=== PATIENT | female | born 1995 | race Caucasian/White ===

== ENCOUNTER 2017-04-03 11:43 | Emergency (ER) | payer OTHER ==
[2017-04-03 12:09] VITALS: BP 115/52
--- NOTE | 2017-04-03 12:56 | UC ---
Lower Extremity/Ankle HPI - History of Current Complaint Chief Complaint: UCLowerExtremity Stated Complaint: TOE INJURY Time Seen by Provider: 04/03/17 12:37 Hx Obtained From: Patient Hx Last Menstrual Period: 03/03/17 ?: No Onset/Duration: Sudden Onset - banged toe on couch and felt sharp pain in toe 2 days ago. still painful and very black and blue Severity Initially: Severe Severity Currently: Moderate Aggravating Factor(s): Standing, Ambulation Alleviating Factor(s): Rest, Elevation, Ice Able to Bear Weight: Yes - with pain - Allergies/Home Medications Allergies/Adverse Reactions: Allergies Allergy/AdvReac Type Severity Reaction Status Date / Time Penicillins Allergy Intermediate Rash Verified 04/03/17 12:05 Sulfa Antibiotics Allergy Intermediate Hives Verified 04/03/17 12:05 Loratadine [From Claritin] Allergy Mild Rash Verified 04/03/17 12:05 Iodine Allergy Erythema Verified 04/03/17 12:05 Home Medications: Home Medications NK [No Home Medications Reported] 04/03/17 [History Confirmed 04/03/17] PMH/Surg Hx/FS Hx/Imm Hx Previously Healthy: Yes - Surgical History Surgical History: Yes Surgery Procedure, Year, and Place: tonsillectomy at 9 years old. adnoids at 9 years old. wisdom teeth removed 2010. appy 2013 - Family History Known Family History: Positive: None - Social History Occupation: Employed Full-time Lives: With Family Alcohol Use: Occasionally Alcohol Amount: once a month Substance Use Type: None Smoking Status (MU): Current Some Day Smoker Type: Cigarettes When Did the Patient Quit Smoking/Using Tobacco: 12/27/14 - Immunization History Most Recent Influenza Vaccination: none Most Recent Tetanus Shot: up to date Most Recent Pneumonia Vaccination: none Vaccination Up to Date: Yes Review of Systems Constitutional: Negative Skin: Bruising - R 5th toe Respiratory: Negative Cardiovascular: Negative Musculoskeletal: Other: - pain R 5th toe All Other Systems Reviewed And Are Negative: Yes Physical Exam Triage Information Reviewed: Yes Appearance: Well-Appearing, No Pain Distress, Well-Nourished Vital Signs: Initial Vital Signs Temp 98 F 04/03/17 12:06 Pulse 80 04/03/17 12:06 Resp 16 04/03/17 12:06 BP 115/52 04/03/17 12:06 Pulse Ox 100 04/03/17 12:06 Vital Signs Reviewed: Yes Respiratory Exam: Normal Cardiovascular Exam: Normal Musculoskeletal: Positive: Other: - pain, swelling and ecchymosis R 5th toe, ecchymosis extends to dorsal foot Psychological Exam: Normal Diagnostics - Radiology No standard instances Xray Interpretation: Positive (See Comments) - fracture right 5th toe, proximal phalange Lower Extremity Course/Dx - Differential Dx/Diagnosis Differential Diagnosis/HQI/PQRI: Contusion, Fracture (Closed), Sprain Provider Diagnoses: Fractured 5th toe Discharge - Discharge Plan Condition: Stable Disposition: HOME Patient Education Materials: Toe Fracture (ED) Forms: *Work Release Referrals: No Primary Care Phys,NOPCP [Primary Care Provider] - Ilia Solis MD [Medical Doctor] - 3 Days (for follow-up) Additional Instructions: Ice and elevate foot. use over the counter ibuprofen for pain as directed
--- NOTE | 2017-04-03 13:06 | RAD ---
INDICATION: Right fifth toe. TECHNIQUE: 3 views of the right fifth toe were obtained. FINDINGS: There is a comminuted nondisplaced fracture of the proximal aspect of the proximal phalanx. The fracture extends to the proximal articular margin. There is surrounding soft tissue swelling. IMPRESSION: COMMINUTED NONDISPLACED INTRA-ARTICULAR FRACTURE OF THE PROXIMAL PHALANX.
== END 2017-04-03 13:30 | disposition home or self-care (01) ==
LOC: UCEAST 11:43
DX: S92.591A Other fracture of right lesser toe(s), initial encounter for closed fracture (principal); Z88.2 Allergy status to sulfonamides; Z88.0 Allergy status to penicillin; Z88.8 Allergy status to other drugs, medicaments and biological substances; F17.210 Nicotine dependence, cigarettes, uncomplicated; W22.8XXA Striking against or struck by other objects, initial encounter; Y92.9 Unspecified place or not applicable
CPT/HCPCS: 81025; 99212; G0463

== ENCOUNTER 2018-01-01 14:18 | Emergency (ER) | payer OTHER ==
[2018-01-01 14:41] VITALS: BP 127/77
--- NOTE | 2018-01-01 14:49 | UC ---
FLU HPI - HPI Summary HPI Summary: 22 y/o female presents to the urgent care c/o body aches, subjective fever at home, mild GARRIDO since yesterday. Pain is 7/10 also associated w/ mild nasal discharge and mild cough. Pt took Tylenol 500mg PO last night to alleviate. Her mid chest hurts when she moves or coughs. She usually work out every day, but this morning she couldn't due to fatigue. Pt denies SOB, chest pain, abdominal pain, N/V/D. rash, neck pain, or Hx of tick bites - History of Current Complaint Chief Complaint: UCGeneralIllness Stated Complaint: BODY ACHES, SKIN SENSITIVE TO TOUCH Time Seen by Provider: 01/01/18 14:48 Hx Obtained From: Patient Hx Last Menstrual Period: [id number] ?: No Onset/Duration: Gradual Onset, Lasting Days - 1 days, Still Present, Worse Since - today Severity Currently: Mild Severity Initially: Moderate Pain Intensity: 7 Pain Scale Used: 0-10 Numeric Associated Signs & Symptoms: Positive: Fever - subjective fever at home, Myalgia , Nasal Congestion - clear - Risk Factors Influenza Risk Factors: Negative - Allergy/Home Medications Allergies/Adverse Reactions: Allergies Allergy/AdvReac Type Severity Reaction Status Date / Time iodine Allergy See Comment Verified 01/01/18 14:42 loratadine [From Claritin] Allergy Rash Verified 01/01/18 14:42 Penicillins Allergy Rash Verified 01/01/18 14:42 Sulfa (Sulfonamide Allergy Hives Verified 01/01/18 14:42 Antibiotics) Home Medications: Home Medications Aspirin/Caffeine [Jessica Back & Body Pain Ex] 1 tab PO Q8H 01/01/18 [History Confirmed 01/01/18] Norgestimate-Ethinyl Estradiol [[place] 28 Tablet] 1 each PO DAILY 01/01/18 [History Confirmed 01/01/18] PMH/Surg Hx/FS Hx/Imm Hx Previously Healthy: Yes - Pt denies PMHX - Surgical History Surgical History: Yes Surgery Procedure, Year, and Place: tonsillectomy at 9 years old. adnoids at 9 years old. wisdom teeth removed 2010. appy 2013. laproscopy 2014 - Family History Known Family History: Positive: Hypertension, Diabetes - Social History Occupation: Employed Full-time Lives: With Family Alcohol Use: Weekly Alcohol Amount: once a month Substance Use Type: None Smoking Status (MU): Light Every Day Tobacco Smoker Type: Cigarettes When Did the Patient Quit Smoking/Using Tobacco: 12/27/14 - Immunization History Most Recent Influenza Vaccination: none Most Recent Tetanus Shot: up to date Most Recent Pneumonia Vaccination: none Vaccination Up to Date: Yes Review of Systems Constitutional: Fever - subjective fever at home, Chills, Fatigue Skin: Negative Eyes: Negative ENT: Nasal Discharge - clear Respiratory: Cough - mild dry cough Cardiovascular: Negative Gastrointestinal: Negative Genitourinary: Negative Motor: Negative Neurovascular: Negative Musculoskeletal: Myalgia Neurological: Negative Psychological: Negative Is Patient Immunocompromised?: No All Other Systems Reviewed And Are Negative: Yes Physical Exam - Summary Physical Exam Summary: VITAL SIGNS: Reviewed. GENERAL: Patient is a well developed and nourished female who is sitting comfortable in the examining table. Patient is not in any acute respiratory distress. HEAD AND FACE: No signs of trauma. No ecchymosis, hematomas or skull depressions. No sinus tenderness. EYES: PERRLA, EOMI x 2, No injected conjunctiva, no nystagmus. No photophobia. EARS: Hearing grossly intact. Ear canals and tympanic membranes are within normal limits. Nose: edematous and erythematous nasal mucosa w/ clear nasal discharge. MOUTH: Positive no erythema, no tonsillar enlargement. Uvula in midline. NECK: Supple, trachea is midline, Positive anterior cervical lymphadenopathy, no JVD, no carotid bruit, no c-spine tenderness, neck with full ROM. No meningeal signs, no Kernig's or brudzinskis signs. CHEST: Symmetric, no tenderness at palpation LUNGS: Clear to auscultation bilaterally. No wheezing or crackles. CVS: Regular rate and rhythm, S1 and S2 present, no murmurs or gallops appreciated. ABDOMEN: Soft, non-tender. No signs of distention. No rebound no guarding, and no masses palpated. Bowel sounds are normal. EXTREMITIES: FROM in all major joints, no edema, no cyanosis or clubbing. NEURO: Alert and oriented x 3. No acute neurological deficits. Speech is normal and follows commands. SKIN: Dry and warm Triage Information Reviewed: Yes Vital Signs: Initial Vital Signs Temp 99.9 F 01/01/18 14:34 Pulse 101 10/06/18 14:34 Resp 16 01/01/18 14:34 BP 127/77 01/01/18 14:34 Pulse Ox 98 01/01/18 14:34 Flu Course/Dx - Course Course Of Treatment: 22 y/o female presents to the urgent care c/o body aches, subjective fever at home, mild GARRIDO since yesterday. Pain is 7/10 also associated w/ mild nasal discharge and mild cough. Pt took Tylenol 500mg PO last night to alleviate. Her mid chest hurts when she moves or coughs. She usually work out every day, but this morning she couldn't due to fatigue. Pt denies SOB, chest pain, abdominal pain, N/V/D. rash, neck pain, or Hx of tick bites. Hx obtained. Pt w/ mild URI on examination.Influenza A&B ordered: result : negative. Pt Rx ibuprofen PO to alleviates symptoms. Pt givne first dose at the clinic by nurse. Pt tolerated well medication and felt better. Pt Advised on hand washing and rest, increase fluid intake, eat well and avoid strenuous exercise. If symptoms do not improve or worsen advised to return to the urgent care or f/u with her PCP for further evaluation and treatment.D/C instructions explained. Pt understood and agreed with plan of care. - Differential Dx/Diagnosis Differential Diagnosis/HQI/PQRI: Bronchitis, Influenza, Upper Respiratory Infection, Other - viral syndrome Provider Diagnoses: 1- Viral syndrome Discharge - Sign-Out/Discharge Documenting (check all that apply): Patient Departure - D/c home All imaging exams completed and their final reports reviewed: No Studies - Discharge Plan Condition: Stable Disposition: HOME Prescriptions: Ibuprofen TAB* [Motrin TAB* 800 MG] 800 mg PO Q6H PRN #30 tab PRN Reason: Pain Patient Education Materials: Viral Syndrome (ED) Referrals: [facility] REFERR[facility] [Outside] Additional Instructions: 1-Please take ibuprofen PO q6-8hrs prn as instructed after meals to alleviate pain and swelling. Increase fluid intake, eat well, rest and avoid strenuous exercise 2-If symptoms do not improve or worsen please return to the urgent care or f/u with your PCP in 2-3 days for further evaluation and treatment. 3-If you develop fever and severe body aches despite taking Ibuprofen and good hydration please go immediately to the ER for further management - Billing Disposition and Condition Condition: STABLE Disposition: Home - Attestation Statements Provider Attestation: I was available for consult. This patient was seen by the CARIN. The patient was not presented to, seen by, or examined by me. -Kelli
[2018-01-01] MEDS ORDERED: Ibuprofen TAB* 400 MG PO ONE (14:59)
== END 2018-01-01 15:45 | disposition home or self-care (01) ==
LOC: UCEAST 14:18
DX: B34.9 Viral infection, unspecified (principal); F17.210 Nicotine dependence, cigarettes, uncomplicated; Z88.0 Allergy status to penicillin; Z88.8 Allergy status to other drugs, medicaments and biological substances; R50.9 Fever, unspecified
CPT/HCPCS: 81003; 84702; 99212; A9270-GY; G0463

== ENCOUNTER 2018-01-02 16:04 | Emergency (ER) | payer OTHER ==
[2018-01-02] MEDS ORDERED: NS 0.9% 1000 ML* 1,000 ML IV ONE ×3 (16:33→21:49)
[2018-01-02] MEDS ORDERED: Ketorolac INJ* 30 MG/ML 1 ML VIAL IV PUSH ONE (16:33)
[2018-01-02 16:52] LABS: ABS Basophils 0 10^3/ul (0-0.2); ABS Eosinophils 0 10^3/ul (0-0.6); ABS Lymphocytes 0.8 10^3/ul (1.0-4.8); ABS Monocytes 0.3 10^3/ul (0-0.8); ABS Neutrophils 5.6 10^3/ul (1.5-7.7); ABS Nucleated RBC 0 10^3/ul; Eosinophil % 0.1 % (0-6); Hematocrit 44 % (35-47); Lymphocyte % 11.8 % (25-47); Mean Corpuscular HGB Conc 34 g/dl (31-36); Mean Corpuscular Hemoglobin 30 pg (27-31); Mean Corpuscular Volume 88 fL (80-97); Mean Platelet Volume 9.9 um3 (7.4-10.4); Nucleated Red Blood Cells % 0; Platelet Count 107 10^3/ul (150-450); Red Blood Count 4.96 10^6/ul (4.00-5.40); Red Cell Distribution Width 13 % (10.5-15); White Blood Count 6.8 10^3/ul (3.5-10.8)
--- NOTE | 2018-01-02 16:52 | ED ---
GI/ HPI - HPI Summary HPI Summary: The pt is a 22 y.o female with a chief complaint of vaginal bleeding. The pt is presenting to the [facility] accompanied by no one. She states that she went to [facility] yesterday (01/01/18) in order to see whether she had the flu. She was not diagnosed with the flu at the [facility]. Pt is on control and states the bleeding was unnatural and not associated with the menstrual cycle. The bleeding is reported to be "heavy." Pt reports of myalgia. She states that she had had similar symptoms last year with a significant STD, however she also states that she gets regularly checked since last year for the STD. Ibuprofen was taken at 1100. The patient rates the pain 8/10 in severity. Symptoms aggravated by nothing. Symptoms alleviated by nothing. - History of Current Complaint Chief Complaint: EDVaginalBleeding Time Seen by Provider: 01/02/18 16:16 Stated Complaint: ABNORMAL BLEEDING/COUGH Hx Obtained From: Patient Hx Last Menstrual Period: [id number] Onset/Duration: Started Days Ago - Yesterday Severity: Severe Current Severity: Severe Pain Intensity: 8 Additional Signs & Symptoms: Positive: Vaginal Bleeding, Other: - Myalgia Aggravating Factor(s): Nothing Alleviating Factor(s): Nothing - Additional Pertinent History Primary Care Physician: [id number] - Allergy/Home Medications Allergies/Adverse Reactions: Allergies Allergy/AdvReac Type Severity Reaction Status Date / Time iodine Allergy See Comment Verified 01/01/18 14:42 loratadine [From Claritin] Allergy Rash Verified 01/01/18 14:42 Penicillins Allergy Rash Verified 01/01/18 14:42 Sulfa (Sulfonamide Allergy Hives Verified 01/01/18 14:42 Antibiotics) PMH/Surg Hx/FS Hx/Imm Hx Endocrine/Hematology History: Reports: Hx Anemia Denies: Hx Diabetes Cardiovascular History: Denies: Hx Congestive Heart Failure, Hx Hypertension GI History: Reports: Other GI Disorders - indigestion History: Reports: Hx Kidney Infection, Other Problems/Disorders - bladder infections Denies: Hx Dialysis, Hx Renal Disease Psychiatric History: Reports: Hx Anxiety - eccessive anxiety/depression, Hx Panic Disorder Denies: Hx Eating Disorder, Hx of Violent Episodes Against Others - Surgical History Surgery Procedure, Year, and Place: tonsillectomy at 9 years old. adnoids at 9 years old. wisdom teeth removed 2010. appy 2014. laproscopy 2015 Hx Anesthesia Reactions: No Infectious Disease History: No Infectious Disease History: Denies: Hx Clostridium Difficile, Hx Hepatitis, Hx Human Immunodeficiency Virus (HIV), Hx of Known/Suspected MRSA, Hx Shingles, Hx Tuberculosis, Hx Known/ Suspected VRE, Hx Known/Suspected VRSA, History Other Infectious Disease, Traveled Outside the [place] in Last 30 Days - Family History Known Family History: Positive: None, Hypertension, Diabetes - Social History Alcohol Use: Weekly Alcohol Amount: once a month Substance Use Type: Reports: None Smoking Status (MU): Light Every Day Tobacco Smoker Type: Cigarettes Review of Systems Constitutional: Negative Eyes: Negative ENT: Negative Cardiovascular: Negative Respiratory: Negative Gastrointestinal: Negative Genitourinary: Other - Vaginal bleeding Positive: Myalgia Skin: Negative Neurological: Negative Psychological: Normal All Other Systems Reviewed And Are Negative: Yes Physical Exam - Summary Physical Exam Summary: Appearance: The patient is well-nourished in no acute distress and in no acute pain. Skin: The skin is warm and dry and skin color reflects adequate perfusion. HEENT: The head is normocephalic and atraumatic. The pupils are equal and reactive. The conjunctivae are clear and without drainage. Nares are patent and without drainage. Mouth reveals moist mucous membranes and the throat is without erythema and exudate. The external ears are intact. The ear canals are patent and without drainage. The tympanic membranes are intact. Neck: The neck is supple with full range of motion and non-tender. There are no carotid bruits. There is no neck vein distension. Respiratory: Chest is non-tender. Lungs are clear to auscultation and breath sounds are symmetrical and equal. Cardiovascular: Heart is regular rate and rhythm. There is no murmur or rub auscultated. There is no peripheral edema and pulses are symmetrical and equal. Abdomen: The abdomen is soft and non-tender. There are normal bowel sounds heard in all four quadrants and there is no organomegaly palpated. Musculoskeletal: There is no back tenderness noted. Extremities are non-tender with full range of motion. There is good capillary refill. There is no peripheral edema or calf tenderness elicited. Pelvic Exam: Mild cervical motion tenderness; Right adnexal tenderness Neurological: Patient is alert and oriented to person, place and time. The patient has symmetrical motor strength in all four extremities. Cranial nerves are grossly intact. Deep tendon reflexes are symmetrical and equal in all four extremities. Psychiatric: The patient has an appropriate affect and does not exhibit any anxiety or depression Triage Information Reviewed: Yes Vital Signs On Initial Exam: Initial Vitals Temp Pulse Resp BP Pulse Ox 99.7 F 109 22 131/86 99 01/02/18 16:07 01/02/18 16:07 01/02/18 16:07 01/02/18 16:07 01/02/18 16:07 Vital Signs Reviewed: Yes Diagnostics - Vital Signs Vital Signs Temp Pulse Resp BP Pulse Ox 01/02/18 16:07 99.7 F 109 22 131/86 99 - Laboratory Result Diagrams: 01/02/18 16:46 01/02/18 16:46 Lab Statement: Any lab studies that have been ordered have been reviewed, and results considered in the medical decision making process. - Ultrasound No standard instances Ultrasound Interpretation Completed By: Radiologist - Transvaginal US reveals Sonographically normal uterus and ovaries as per radiologist report. The ED physician has reviewed this radiology report. GIGU Course/Dx - Course Course Of Treatment: Ms. Henriquez presented concerned that she had an STI. She ran a fever yesterday and today developed vaginal discharge which she thinks is blood. She has a lot of pelvic pain and cramping. She had no leukocytosis in the ED but was febrile. She had low abdominal tenderness and cervical motion tenderness on exam with thin brown discharge and tenderness in the right adnexa. Ultrasound showed no TOA. She is being given pain medications, Rocephin, doxycycline, and Flagyl here in the emergency department and I expect she should be discharged to follow-up with [facility]. She reports a rash to penicillin but no severe symptoms. - Diagnoses Provider Diagnoses: PID (pelvic inflammatory disease) Discharge - Sign-Out/Discharge Documenting (check all that apply): Patient Departure - Discharge Home - Discharge Plan Condition: Stable Disposition: HOME Prescriptions: DOXYcycline CAP(*) [DOXYcycline 100MG CAP(*)] 100 mg PO BID #20 cap HYDROcodone/ACETAMIN 5-325 MG* [[place] 5-325 TAB*] 1 tab PO Q6H PRN #20 tab MDD 4 PRN Reason: Pain metroNIDAZOLE [Flagyl 500 MG TAB] 500 mg PO TID #14 tab Patient Education Materials: Pelvic Inflammatory Disease (ED) [facility] Additional Instructions: Follow up with Primary care physician within 1 week. - Billing Disposition and Condition Condition: STABLE Disposition: Home - Attestation Statements Document Initiated by Scribe: Yes Documenting Scribe: Grady Freeman Provider For Whom Scribe is Documenting (Include Credential): Dr. Alvin Pennington Scribe Attestation: Grady Forte scribed for Dr. Alvin Pennington on 01/02/18 at 2206. Scribe Documentation Reviewed: Yes Provider Attestation: The documentation as recorded by the Grady penaloza accurately reflects the service I personally performed and the decisions made by me, Dr. Alvin Pennington
[2018-01-02 17:11] LABS: EGFR Non-African American 92.9 (>60)
[2018-01-02] MEDS ORDERED: Acetaminophen TAB* 325 MG PO ONE (18:41)
[2018-01-02] MEDS ORDERED: Morphine INJ** 4 MG/ML 1 ML CARPUJECT IV ONE (18:41)
[2018-01-02] MEDS ORDERED: Morphine INJ* 4 MG/ML 1 ML SYRINGE (NEW SYRINGE VERSION) ONE (18:46)
--- NOTE | 2018-01-02 21:37 | RAD ---
EXAM: US Pelvis, Transvaginal CLINICAL HISTORY: 22 years old, female; Pain; Pelvic pain; Additional info: Right adnexal tenderness TECHNIQUE: Real-time transvaginal pelvic ultrasound (complete) with image documentation. Transvaginal imaging was used for better evaluation of the endometrium and adnexa. COMPARISON: PEL/TRANS US PELVIS/TRANSVAG 06/25/2013 1:33 AM FINDINGS: Uterus/cervix: Anteverted anteflexed. Measures 8.0 x 5.8 x 3.9 cm (96 cc). No myometrial masses. Early proliferative phase endometrium measuring 0.3 cm. Right ovary: Right ovary measures 4.1 x 2.3 x 2.2 cm (11 cc). Normal size and echogenicity with no masses. Normal follicles. Normal arterial and venous waveforms. Left ovary: Left ovary measures 3.5 x 2.6 x 1.8 cm (8.4 cc). Normal size and echogenicity with no masses. Normal follicles. Normal arterial and venous waveforms. Free fluid: Small volume simple free fluid in the pelvic cul-de-sac and adjacent to both ovaries. Bladder: Empty bladder which cannot be evaluated with this probe. IMPRESSION: Sonographically normal uterus and ovaries. To contact [facility] with a general question: [facility] - [phone] For direct physician to physician contact: Physician Hotline - [phone] [facility] ([facility] Facility ID #[id number])
[2018-01-02] MEDS ORDERED: cefTRIAXone VIAL(*) 250 MG VIAL IM ONE (21:41)
[2018-01-02] MEDS ORDERED: oxyCODONE/Acetamin 5/325 MG* TAB PO ONE (21:41)
[2018-01-02] MEDS ORDERED: metroNIDAZOLE TAB* 250 MG PO ONE ×2 (21:41→22:12)
[2018-01-02] MEDS ORDERED: DOXYcycline CAP(*) 100 MG PO ONE ×2 (21:41→22:12)
--- NOTE | 2018-01-02 22:24 | ED ---
Progress - Progress Note Progress Note: The pt is a 22 y.o female with a chief complaint of vaginal bleeding. Patient was signed out from Dr. Pennington to Dr. Pino during a shift change, pending medications. Course/Dx - Course Course Of Treatment: Ms. Henriquez presented concerned that she had an STI. She ran a fever yesterday and today developed vaginal discharge which she thinks is blood. She has a lot of pelvic pain and cramping. She had no leukocytosis in the ED but was febrile. She had low abdominal tenderness and cervical motion tenderness on exam with thin brown discharge and tenderness in the right adnexa. Ultrasound showed no TOA. She is being given pain medications, Rocephin, doxycycline, and Flagyl here in the emergency department and I expect she should be discharged to follow-up with [facility]. She reports a rash to penicillin but no severe symptoms. - Diagnoses Provider Diagnoses: PID (pelvic inflammatory disease) Discharge - Sign-Out/Discharge Documenting (check all that apply): Receiving Sign-Out Receiving patient FROM: Alvin Pennington - Awaiting her to take meds - Discharge Plan Condition: Stable Disposition: HOME Prescriptions: DOXYcycline CAP(*) [DOXYcycline 100MG CAP(*)] 100 mg PO BID #20 cap HYDROcodone/ACETAMIN 5-325 MG* [[place] 5-325 TAB*] 1 tab PO Q6H PRN #20 tab MDD 4 PRN Reason: Pain metroNIDAZOLE [Flagyl 500 MG TAB] 500 mg PO TID #14 tab Patient Education Materials: Pelvic Inflammatory Disease (ED) Forms: *Work Release Referrals: [facility], [Provider Group] - 7 Days Additional Instructions: Follow up with Primary care physician within 1 week. - Attestation Statements Document Initiated by Scribe: Yes Documenting Scribe: Dmitri Guerra Provider For Whom Scribe is Documenting (Include Credential): Fransisco Pino MD Scribe Attestation: Dmitri Forte, scribed for Fransisco Pino MD on 01/02/18 at 2308.
[2018-01-02 23:06] VITALS: BP 124/83
== END 2018-01-02 23:15 | disposition home or self-care (01) ==
LOC: ED 16:04
DX: N73.9 Female pelvic inflammatory disease, unspecified (principal); N93.9 Abnormal uterine and vaginal bleeding, unspecified; Z88.0 Allergy status to penicillin; F17.210 Nicotine dependence, cigarettes, uncomplicated
CPT/HCPCS: 36415; 76830; 80053; 84702; 85025; 86140; 87480; 87491; 87510; 87591; 87661; 96374; 96375; 99284; A9270-GY; J0696; J1885; J2270

== ENCOUNTER 2020-05-02 19:02 | Inpatient (IN) ==
[2020-05-02] MEDS ORDERED: Charcoal ACTIVATED 25 GM/120 ML BTL PO ONE (19:14)
[2020-05-02] MEDS ORDERED: NS 0.9% 1000 ml BAG 1,000 ML IV ONE (19:18)
[2020-05-02 20:12] LABS: ABS Basophils 0.1 10^3/ul (0-0.2); ABS Lymphocytes 2.1 10^3/ul (1.0-4.8); ABS Monocytes 0.5 10^3/ul (0-0.8); ABS Neutrophils 3.8 10^3/ul (1.5-7.7); Eosinophil % 0.4 %; Hematocrit 47 % (35-47); Hemoglobin 15.9 g/dL (12.0-16.0); Lymphocyte % 32.9 %; Mean Corpuscular HGB Conc 34 g/dL (31-36); Mean Corpuscular Hemoglobin 30 pg (27-31); Mean Corpuscular Volume 89 fL (80-97); Mean Platelet Volume 10.2 fL (7.4-10.4); Platelet Count 190 10^3/uL (150-450); Red Blood Count 5.24 10^6 /uL (3.70-4.87); Red Cell Distribution Width 14 % (10-15); White Blood Count 6.5 10^3/uL (3.5-10.8)
[2020-05-02 20:23] LABS: ALT 12 U/L (7-52); AST 15 U/L (13-39); Albumin 4.7 g/dL (3.2-5.2); Alkaline Phosphatase 66 U/L (34-104); Anion Gap 6 mmol/L (2-11); BUN/Creatinine Ratio 16.7 (8-20); Blood Urea Nitrogen 12 mg/dL (6-24); CO2 Carbon Dioxide 27 mmol/L (22-32); Calcium 9.1 mg/dL (8.6-10.3); Chloride 110 mmol/L (101-111); EGFR African American 119.4 (>60); EGFR Non-African American 98.7 (>60); Globulin 2.4 g/dL (2-4); Glucose 82 mg/dL (70-100); Potassium 3.6 mmol/L (3.5-5.0); Sodium 143 mmol/L (135-145); Total Protein 7.1 g/dL (6.4-8.9)
[2020-05-02 20:57] LABS: Acetaminophen < 15 mcg/mL; Alcohol, S 236 mg/dL (<10); Salicylate < 2.50 mg/dL (<30)
[2020-05-02 21:08] LABS: TSH Ultra Thyroid Stim Horm 4.03 mcIU/mL (0.34-5.60)
[2020-05-02 21:11] LABS: Urine Appearance Clear; Urine Bilirubin Negative (Negative); Urine Blood 1+ (Negative); Urine Color Straw; Urine Glucose Negative (Negative); Urine Ketones Negative (Negative); Urine Nitrite Negative (Negative); Urine Protein Negative (Negative); Urine Specific Gravity 1.012 (1.010-1.030); Urine Urobilinogen Negative (Negative)
[2020-05-02 21:15] LABS: Urine Benzodiazepine Screen None Detected (None Detect); Urine Cannabinoids Screen None Detected (None Detect); Urine Opiates Screen None Detected (None Detect)
[2020-05-02 21:26] LABS: Urine Bacteria Absent (Absent); Urine Red Blood Cell Absent (Absent); Urine Squamous Epithelial Cell Present (Absent); Urine White Blood Cell Absent (Absent)
[2020-05-03] MEDS ORDERED: Al Hydrox/Mg Hydrox/Simet LIQ 30 ML UDC PO PRN (05:20)
[2020-05-03] MEDS ORDERED: Nicotine GUM 2MG FRUIT FLAVOR PO PRN (06:00)
[2020-05-03] MEDS: Vitamin THERAPEUTIC TAB PO SCH (09:41)
[2020-05-03] MEDS: Nicotine PATCH 7 MG/24 HR PATCH TRANSDERM SCH (09:43)
[2020-05-04 06:47] LABS: HDL Cholesterol 77.8 mg/dL
[2020-05-04] MEDS: Vitamin THERAPEUTIC TAB PO SCH (08:36)
[2020-05-04] MEDS: Nicotine PATCH 7 MG/24 HR PATCH TRANSDERM SCH (08:37)
[2020-05-05] MEDS: Vitamin THERAPEUTIC TAB PO SCH (10:06)
[2020-05-05] MEDS: Nicotine PATCH 7 MG/24 HR PATCH TRANSDERM SCH (10:06)
[2020-05-06] MEDS: Vitamin THERAPEUTIC TAB PO SCH (08:23)
[2020-05-06] MEDS: Nicotine PATCH 7 MG/24 HR PATCH TRANSDERM SCH (08:23)
[2020-05-07] MEDS: Vitamin THERAPEUTIC TAB PO SCH (08:29)
[2020-05-08] MEDS: Vitamin THERAPEUTIC TAB PO SCH (08:42)
[2020-05-08 09:18] VITALS: BP 101/57
== END 2020-05-08 16:19 | disposition home or self-care (01) | DRG 881 ==
LOC: ED 19:02 → BSU 05-03 03:08
PROVIDERS: ADMIT Psychiatry & Neurology Psychiatry; ATTEND Psychiatry & Neurology Psychiatry